=== PATIENT | male | born 1970 | race African-American/Black ===

== ENCOUNTER 2017-09-10 00:23 | Emergency (ER) | payer SELFPAY ==
[2017-09-10] MEDS ORDERED: ASPIRIN 81 MG TABLET, CHEWABLE PO ONE (00:48)
--- NOTE | 2017-09-10 00:48 | ER Document Report ---
ED Cardiac - General Chief Complaint: Chest Pain Stated Complaint: CHEST PAIN Time Seen by Provider: 09/10/17 00:40 Notes: Patient is a 47-year-old male comes emergency department for chief complaint of pain in the left side of his chest, said the pain starts towards the middle of his pectoralis (he points) and wraps around to underneath his armpit. Pain is worse when he lifts his left arm. He states that he intermittently gets this pain while at work, states it always resolves. He states it was sharper today and he came to be evaluated for. He denies current pain unless he moves or with position changes. He denies shortness of breath, nausea or vomiting, or any other complaints. He smokes, he denies any daily medications or known medical problems. He drinks alcohol, he denies recreational drugs. His father had a heart attack. 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 TRAVEL OUTSIDE OF THE [place] IN LAST 30 DAYS: No - Related Data Allergies/Adverse Reactions: No Known Allergies Allergy (Unverified 09/23/12 19:16) Past Medical History - General Information source: Patient - Social History Smoking Status: Current Every Day Smoker Smoking Education Provided: Yes - <3 min Frequency of alcohol use: Occasional Drug Abuse: None Lives with: Family Family History: Reviewed & Not Pertinent Pulmonary Medical History: Reports: Hx Asthma - A CHILD Past Surgical History: Reports: Hx Orthopedic Surgery - Immunizations Hx Diphtheria, Pertussis, Tetanus Vaccination: Yes Review of Systems - Review of Systems Constitutional: No symptoms reported EENT: No symptoms reported Cardiovascular: See HPI Respiratory: No symptoms reported Gastrointestinal: No symptoms reported Genitourinary: No symptoms reported Male Genitourinary: No symptoms reported Musculoskeletal: See HPI Skin: No symptoms reported Hematologic/Lymphatic: No symptoms reported Neurological/Psychological: No symptoms reported Physical Exam - Vital signs Vitals: Temp Pulse Resp BP Pulse Ox 98.6 F 64 16 140/95 H 100 09/10/17 00:37 09/10/17 00:37 09/10/17 00:37 09/10/17 00:37 09/10/17 00:37 - General General appearance: Appears well In distress: None - Patient smiling and well-appearing - HEENT Head: Normocephalic, Atraumatic Eyes: Normal Conjunctiva: Normal Extraocular movements intact: Yes Eyelashes: Normal Pupils: PERRL Nasal: Normal Mouth/Lips: Normal Mucous membranes: Normal Pharynx: Normal Neck: Normal - Respiratory Respiratory status: No respiratory distress. No: Respiratory distress, Labored Chest status: Tender - Patient is tender over the lateral left pectoralis muscle extending up towards the axillary area, no erythema, induration, fluctuance, or crepitus over the area. Unremarkable chest wall examination otherwise Breath sounds: Normal. No: Decreased air movement, Nonproductive cough, Wheezing - Cardiovascular Rhythm: Regular. No: Tachycardia Heart sounds: Normal auscultation, S1 appreciated, S2 appreciated - Abdominal Inspection: Normal Tenderness: Nontender. No: Tender, Guarding - Back Back: Normal, Nontender - Extremities General upper extremity: Normal inspection, Nontender, Normal ROM, Normal strength General lower extremity: Normal inspection, Nontender, Normal ROM, Normal strength. 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 Slightly peaked T waves throughout, flattened T-wave in aVL and V2, nonspecific. Chest x-ray with no abnormalities noted. CBC with no leukocytosis, shows elevated lymphocytes. Chemistry unremarkable. CK slightly elevated, troponin negative. Patient's heart score is 2. Specific chest wall tenderness was reproduced tenderness with movement that patient has had intermittently and frequently gets while at work and after work and resolves on its own. No tachycardia, shortness of breath, or current symptoms suggesting pulmonary embolism. Patient asymptomatic throughout his entire stay in the emergency department unless he lifts his left arm or I press on the area at the pectoralis. Patient does not even have established primary care. Discussed workup, smoking cessation, primary care referral, patient states he will call today to set up his appointment because he understands it takes time to get in. Discussed workup, recommendations, return precautions in detail. Patient states understanding and agreement. - Vital Signs Vital signs: Temp Pulse Resp BP Pulse Ox 98.2 F 59 L 16 143/98 H 99 09/10/17 04:30 09/10/17 04:30 09/10/17 04:30 09/10/17 04:30 09/10/17 04:30 - Laboratory Result Diagrams: 09/10/17 01:05 09/10/17 01:05 Laboratory results interpreted by me: 09/10/17 09/10/17 01:05 01:05 RBC 4.34 L Seg Neuts % (Manual) 27 L Lymphocytes % (Manual) 57 H Abs Lymphs (Manual) 4.9 H Creatine Kinase 219 H Discharge - Discharge Clinical Impression: Chest wall pain Chest pain Qualifiers: Chest pain type: unspecified Qualified Code(s): R07.9 - Chest pain, unspecified Condition: Stable Disposition: HOME, SELF-CARE Additional Instructions: Your workup shows no concerning abnormalities at this time. For the chest wall pain take the naproxen prescribed, take the muscle relaxer if needed (I recommend taking at night, can be sedating, do not mix with other sedating medication, do not drive while taking). Call the primary care referral to set up a follow-up for additional evaluation and management. Quit smoking. Return for any concerning symptoms including severe pain, difficulty breathing, vomiting, fever, or any other concerning symptoms Prescriptions: Cyclobenzaprine HCl [Flexeril 5 mg Tablet] 1 - 2 tab PO TID PRN #15 tablet PRN Reason: Naproxen [Naprosyn 375 Mg Tablet] 375 mg PO BID PRN #20 tablet PRN Reason: Forms: Return to Work, Elevated Blood Pressure Referrals: [facility] [Provider Group] - Follow up as needed
[2017-09-10 01:21] LABS: HEMATOCRIT 40.4 % (37.9-51.0); HEMOGLOBIN 13.8 g/dL (13.5-17.0); MEAN CORPUSCULAR HEMOGLOBIN 31.7 pg (27.0-33.4); MEAN CORPUSCULAR VOLUME 93 fl (80-97); PLATELET COUNT 250 10^3/uL (150-450); RED BLOOD COUNT 4.34 10^6/uL (4.35-5.55); RED CELL DISTRIBUTION WIDTH 13.6 % (11.5-14.0); WHITE BLOOD COUNT 8.1 10^3/uL (4.0-10.5)
--- NOTE | 2017-09-10 01:21 | RADIOLOGY REPORT (SQ) ---
EXAM DESCRIPTION: CHEST SINGLE VIEW CLINICAL HISTORY: chest pain COMPARISON: None. FINDINGS: Single frontal view of the chest. The cardiomediastinal silhouette has normal size and contour. No consolidation, pneumothorax, or pleural effusion. No displaced rib fractures identified. Upper abdominal soft tissues are unremarkable. IMPRESSION: 1. No acute pulmonary process identified.
[2017-09-10 01:32] LABS: ALANINE AMINOTRANSFERASE 29 U/L (21-72); ALBUMIN 4.2 g/dL (3.5-5.0); ALKALINE PHOSPHATASE 60 U/L (38-126); ANION GAP 14 (5-19); ASPARTATE AMINO TRANSFERASE 23 U/L (17-59); BILIRUBIN,DIRECT 0.3 mg/dL (0.0-0.4); BILIRUBIN,TOTAL 0.3 mg/dL (0.2-1.3); BLOOD UREA NITROGEN 19 mg/dL (7-20); CALCIUM 9.4 mg/dL (8.4-10.2); CARBON DIOXIDE 25 mmol/L (22-30); CHLORIDE 104 mmol/L (98-107); CREATINE KINASE 219 U/L (55-170); GLUCOSE 102 mg/dL (75-110); POTASSIUM 3.8 mmol/L (3.6-5.0); SODIUM 143.3 mmol/L (137-145); TOTAL PROTEIN 7.1 g/dL (6.3-8.2)
[2017-09-10 01:38] LABS: ABSOLUTE LYMPHOCYTES# (MANUAL) 4.9 10^3/uL (0.5-4.7); ABSOLUTE MONOCYTES # (MANUAL) 0.6 10^3/uL (0.1-1.4); ABSOLUTE NEUTROPHILS# (MANUAL) 2.2 10^3/uL (1.7-8.2); BASOPHILS % (MANUAL) 0 % (0-2); EOSINOPHILS % (MANUAL) 5 % (0-6); LYMPHOCYTES % (MANUAL) 57 % (13-45); MONOCYTES % (MANUAL) 8 % (3-13); SEGMENTED NEUTROPHILS % (MAN) 27 % (42-78); TOTAL CELLS COUNTED 100
[2017-09-10 01:39] LABS: PLATELET COMMENT ADEQUATE; RBC MORPHOLOGY COMMENT NORMO-CYTIC/CHROMIC
[2017-09-10 01:48] LABS: CREATINE KINASE MB 0.68 ng/mL (<4.55); TROPONIN I < 0.012 ng/mL
[2017-09-10 05:01] VITALS: BP 143/98
--- NOTE | 2017-09-10 07:48 | EKG REPORT ---
SEVERITY:- BORDERLINE ECG - SINUS RHYTHM BORDERLINE T ABNORMALITIES, ANT-LAT LEADS : Confirmed by: Braulio Uriostegui MD 10-Sep-2017 07:47:45
== END 2017-09-10 04:40 | disposition home or self-care (01) ==
LOC: ER 00:23
DX: R07.89 Other chest pain (principal); D72.820 Lymphocytosis (symptomatic); F17.200 Nicotine dependence, unspecified, uncomplicated; Z71.6 Tobacco abuse counseling; Z82.49 Family history of ischemic heart disease and other diseases of the circulatory system
CPT/HCPCS: 36415; 71045; 80053; 82550; 82553; 84484; 85025; 93005; 93010; 99285

== ENCOUNTER 2018-01-01 00:52 | Emergency (ER) | payer SELFPAY ==
[2018-01-01 01:01] VITALS: BP 146/91
[2018-01-01] MEDS ORDERED: IPRATROPIUM/ALBUTEROL 0.5-2.5 MG/3 ML AMPUL NEB ONE (02:33)
--- NOTE | 2018-01-01 02:39 | ER Document Report ---
ED General - General Chief Complaint: Breathing Difficulty Stated Complaint: CANT BREATHE Time Seen by Provider: 01/01/18 02:32 Mode of Arrival: Ambulatory Information source: Patient Notes: 47-year-old male history of asthma presents with complaints of episode of shortness of breath as well as difficulty swallowing. Patient notes when he awoke from sleep felt short of breath felt like his mouth was extremely dry, patient states he drinks some water and the symptoms resolved. Patient now is completely asymptomatic but wanted to be evaluated nonetheless. 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 IN LAST 30 DAYS: No - HPI Onset: Just prior to arrival Onset/Duration: Sudden Quality of pain: No pain Severity: Mild Pain Level: Denies Associated symptoms: Hoarseness, Shortness of breath Exacerbated by: Denies Relieved by: Other - water Similar symptoms previously: Yes Recently seen / treated by doctor: No - Related Data Allergies/Adverse Reactions: No Known Allergies Allergy (Verified 01/01/18 03:27) Past Medical History - Social History Smoking Status: Never Smoker Cigarette use (# per day): No Chew tobacco use (# tins/day): No Smoking Education Provided: No Family History: Reviewed & Not Pertinent Pulmonary Medical History: Reports: Hx Asthma - A CHILD Renal/ Medical History: Denies: Hx Peritoneal Dialysis Past Surgical History: Reports: Hx Orthopedic Surgery - Immunizations Hx Diphtheria, Pertussis, Tetanus Vaccination: Yes Review of Systems - Review of Systems Notes: REVIEW OF SYSTEMS: CONSTITUTIONAL : Denies fever, chills, or sweats. Denies recent illness. EENT: Admits to difficulty swallowing CARDIOVASCULAR: Denies chest pain. Denies palpitations or racing or irregular heart beat. Denies ankle edema. RESPIRATORY: Admits shortness of breath GASTROINTESTINAL: Denies abdominal pain or distention. Denies nausea, vomiting , or diarrhea. Denies blood in vomitus, stools, or per rectum. Denies black, tarry stools. Denies constipation. GENITOURINARY: Denies difficulty urinating, painful urination, burning, frequency, blood in urine, or discharge. MUSCULOSKELETAL: Denies back or neck pain or stiffness. Denies joint pain or swelling. SKIN: Denies rash, lesions or sores. HEMATOLOGIC : Denies easy bruising or bleeding. LYMPHATIC: Denies swollen, enlarged glands. NEUROLOGICAL: Denies confusion or altered mental status. Denies passing out or loss of consciousness. Denies dizziness or lightheadedness. Denies headache. Denies weakness or paralysis or loss of use of either side. Denies problems with gait or speech. Denies sensory loss, numbness, or tingling. Denies seizures. PSYCHIATRIC: Denies anxiety or stress. Denies depression, suicidal ideation, or homicidal ideation. ALL OTHER SYSTEMS REVIEWED AND NEGATIVE. Dictation was performed using [employer] recognition software PHYSICAL EXAMINATION: GENERAL: Well-appearing, well-nourished and in no acute distress. HEAD: Atraumatic, normocephalic. EYES: Pupils equal round and reactive to light, extraocular movements intact, sclera anicteric, conjunctiva are normal. ENT: Nares patent, oropharynx clear without exudates. Moist mucous membranes. NECK: Normal range of motion, supple without lymphadenopathy LUNGS: Breath sounds clear to auscultation bilaterally and equal. No wheezes rales or rhonchi. HEART: Regular rate and rhythm without murmurs ABDOMEN: Soft, nontender, nondistended abdomen. No guarding, no rebound. No masses appreciated. Musculoskeletal: Normal range of motion, no pitting or edema. No cyanosis. NEUROLOGICAL: Cranial nerves grossly intact. Normal speech, normal gait. Normal sensory, motor exams PSYCH: Normal mood, normal affect. SKIN: Warm, Dry, normal turgor, no rashes or lesions noted. Physical Exam - Vital signs Vitals: Temp Pulse Resp BP Pulse Ox 98.1 F 67 20 146/91 H 99 01/01/18 01:00 01/01/18 01:00 01/01/18 01:00 01/01/18 01:00 01/01/18 01:00 Course - Re-evaluation Re-evalutation: 01/01/18 02:38 Patient currently is asymptomatic has no complaints at all looks well is in no distress. I will evaluate the patient again after lab work but he is currently in no distress 01/01/18 03:31 Lab work noted no significant abnormality, patient otherwise looks well is no distress will be discharged home with close follow-up After performing a Medical Screening Examination, I estimate there is LOW risk for ACUTE CORONARY SYNDROME, PULMONARY EMBOLI, RESPIRATORY FAILURE, SEPSIS OR MENINGITIS, thus I consider the discharge disposition reasonable. I have reevaluated this patient multiple times and no significant life threatening changes are noted. The patient and I have discussed the diagnosis and risks, and we agree with discharging home with close follow-up. We also discussed returning to the Emergency Department immediately if new or worsening symptoms occur. We have discussed the symptoms which are most concerning (e.g., changing or worsening pain, trouble swallowing or breathing, neck stiffness, fever) that necessitate immediate return. - Vital Signs Vital signs: Temp Pulse Resp BP Pulse Ox 98.1 F 67 20 146/91 H 99 01/01/18 01:00 01/01/18 01:00 01/01/18 01:00 01/01/18 01:00 01/01/18 01:00 - Laboratory Result Diagrams: 01/01/18 02:45 01/01/18 02:45 Laboratory results interpreted by me: 01/01/18 02:45 Creatine Kinase 188 H Discharge - Discharge Clinical Impression: Shortness of breath Condition: Stable Disposition: HOME, SELF-CARE Instructions: Dyspnea, Nonspecific ([facility]) Additional Instructions: Follow up with your physician tomorrow for further care or return to the ED IMMEDIATELY if symptoms worsen or new concerns occur. If you cannot afford to follow up with your primary care physician a list of low cost clinics have been provided at the end of your discharge papers as well.
[2018-01-01 03:02] LABS: ABSOLUTE BASOPHILS # (AUTO) 0.1 10^3/uL (0.0-0.2); ABSOLUTE EOSINOPHILS # (AUTO) 0.5 10^3/uL (0.0-0.6); ABSOLUTE LYMPHOCYTES (AUTO) 2.9 10^3/uL (0.5-4.7); ABSOLUTE MONOCYTES (AUTO) 0.5 10^3/uL (0.1-1.4); ABSOLUTE NEUT (AUTO) 4.3 10^3/uL (1.7-8.2); BASOPHILS % (AUTO) 0.9 % (0-2); EOSINOPHILS % (AUTO) 5.7 % (0-6); HEMATOCRIT 41.8 % (37.9-51.0); HEMOGLOBIN 14.2 g/dL (13.5-17.0); MEAN CORPUSCULAR HEMOGLOBIN 32.1 pg (27.0-33.4); MEAN CORPUSCULAR HGB CONC 33.9 g/dL (32.0-36.0); MEAN CORPUSCULAR VOLUME 95 fl (80-97); MONOCYTES % (AUTO) 6.5 % (3-13); PLATELET COUNT 234 10^3/uL (150-450); RED BLOOD COUNT 4.42 10^6/uL (4.35-5.55); RED CELL DISTRIBUTION WIDTH 13.4 % (11.5-14.0); SEGMENTED NEUTROPHILS % (AUTO) 51.9 % (42-78); TOTAL CELLS COUNTED % (AUTO) 100 %; WHITE BLOOD COUNT 8.2 10^3/uL (4.0-10.5)
[2018-01-01 03:10] LABS: ALANINE AMINOTRANSFERASE 45 U/L (21-72); ALBUMIN 4.7 g/dL (3.5-5.0); ALKALINE PHOSPHATASE 71 U/L (38-126); ANION GAP 11 (5-19); ASPARTATE AMINO TRANSFERASE 38 U/L (17-59); BILIRUBIN,DIRECT 0.3 mg/dL (0.0-0.4); BILIRUBIN,TOTAL 0.5 mg/dL (0.2-1.3); BLOOD UREA NITROGEN 17 mg/dL (7-20); CALCIUM 9.8 mg/dL (8.4-10.2); CARBON DIOXIDE 25 mmol/L (22-30); CHLORIDE 105 mmol/L (98-107); CREATINE KINASE 188 U/L (55-170); GLUCOSE 108 mg/dL (75-110); POTASSIUM 4.3 mmol/L (3.6-5.0); SODIUM 140.7 mmol/L (137-145); TOTAL PROTEIN 8.1 g/dL (6.3-8.2)
[2018-01-01 03:20] LABS: APPEARANCE,URINE CLEAR; BILIRUBIN,URINE NEGATIVE (NEGATIVE); COLOR,URINE COLORLESS; GLUCOSE, URINE NEGATIVE (NEGATIVE); KETONES,URINE NEGATIVE (NEGATIVE); LEUKOCYTE ESTERASE,URINE NEGATIVE (NEGATIVE); NITRITE,URINE NEGATIVE (NEGATIVE); PROTEIN,URINE NEGATIVE (NEGATIVE); URINE SPECIFIC GRAVITY 1.002; UROBILINOGEN,URINE NEGATIVE mg/dL (<2.0)
[2018-01-01 03:23] LABS: CREATINE KINASE MB 0.48 ng/mL (<4.55); NT PRO BNP 31 pg/mL (<125)
[2018-01-01 03:25] LABS: TROPONIN I < 0.012 ng/mL
--- NOTE | 2018-01-01 03:37 | RADIOLOGY REPORT (SQ) ---
EXAM DESCRIPTION: XR CHEST 1 VIEW COMPLETED DATE/TME: 01/01/2018 02:32 CLINICAL HISTORY: 47 years Male, sob COMPARISON: None. NUMBER OF VIEWS/TECHNIQUE: 1/AP FINDINGS: Increased lung volume, clear parenchyma, normal cardiac silhouette, and intact bony thorax. IMPRESSION: No acute cardiopulmonary findings.
--- NOTE | 2018-01-01 08:39 | EKG REPORT ---
SEVERITY:- NORMAL ECG - SINUS RHYTHM : Confirmed by: Alexandra Fagan 01-Jan-2018 08:38:38
== END 2018-01-01 03:55 | disposition home or self-care (01) ==
LOC: ER 00:52
DX: R06.02 Shortness of breath (principal)
CPT/HCPCS: 36415; 71045; 80053; 81001; 82550; 82553; 83880; 84484; 85025; 93005; 93010; 99285

== ENCOUNTER 2020-02-08 22:42 | Emergency (ER) | payer SELFPAY ==
[2020-02-08] MEDS ORDERED: NORMAL SALINE 1000 ML 1,000 ML IV ONE (23:52)
[2020-02-09 00:19] LABS: ABSOLUTE EOSINOPHILS # (AUTO) 0.4 10^3/uL (0.0-0.6); ABSOLUTE LYMPHOCYTES (AUTO) 2.9 10^3/uL (0.5-4.7); ABSOLUTE MONOCYTES (AUTO) 0.6 10^3/uL (0.1-1.4); ABSOLUTE NEUT (AUTO) 4.4 10^3/uL (1.7-8.2); BASOPHILS % (AUTO) 0.5 % (0-2); EOSINOPHILS % (AUTO) 4.2 % (0-6); HEMATOCRIT 41.5 % (37.9-51.0); HEMOGLOBIN 14.4 g/dL (13.5-17.0); MEAN CORPUSCULAR HEMOGLOBIN 33.6 pg (27.0-33.4); MEAN CORPUSCULAR HGB CONC 34.8 g/dL (32.0-36.0); MEAN CORPUSCULAR VOLUME 97 fl (80-97); MONOCYTES % (AUTO) 7.1 % (3-13); PLATELET COUNT 224 10^3/uL (150-450); RED CELL DISTRIBUTION WIDTH 13.2 % (11.5-14.0); SEGMENTED NEUTROPHILS % (AUTO) 53.2 % (42-78); TOTAL CELLS COUNTED % (AUTO) 100 %; WHITE BLOOD COUNT 8.3 10^3/uL (4.0-10.5)
--- NOTE | 2020-02-09 00:36 | EKG REPORT ---
SEVERITY:- ABNORMAL ECG - SINUS RHYTHM CONSIDER LEFT VENTRICULAR HYPERTROPHY : Confirmed by: Alexandra Fagan 09-Feb-2020 00:35:52
[2020-02-09 00:38] LABS: ALBUMIN 4.7 g/dL (3.5-5.0); ALKALINE PHOSPHATASE 105 U/L (38-126); ANION GAP 7 (5-19); ASPARTATE AMINO TRANSFERASE 27 U/L (17-59); BILIRUBIN,TOTAL 0.8 mg/dL (0.2-1.3); BLOOD UREA NITROGEN 9 mg/dL (7-20); CALCIUM 9.8 mg/dL (8.4-10.2); CARBON DIOXIDE 26 mmol/L (22-30); CHLORIDE 99 mmol/L (98-107); GLUCOSE 109 mg/dL (75-110); PHOSPHORUS 3.8 mg/dL (2.5-4.5); POTASSIUM 3.9 mmol/L (3.6-5.0)
--- NOTE | 2020-02-09 01:01 | ER Document Report ---
ED General - General Chief Complaint: Blurred Vision Stated Complaint: BLURRY VISION, LIGHTHEADED TRAVEL OUTSIDE OF THE [place] IN LAST 30 DAYS: No - HPI Notes: 49-year-old male history of smoking presents with brief episode of light headedness approximately 1 hour prior to arrival. Patient says that he does not usually drink and that day prior to arrival he had alcohol binge while at family gathering. Patient says that all day on day of presentation he felt dehydrated and was trying to drink water and then was sitting watching TV and felt lightheadedness for a moment associated with blurry vision which resolved after few seconds. Patient currently has no dizziness or blurry vision. Other than the family event patient describes, he has been home during the pandemic and isolating and has not had any COVID exposures. Patient denies having any other history of drug use, chest pain, shortness of breath, hypertension, hyp erlipidemia history, diabetes, cardiac history, lower extremity edema, abdominal pain, melena or bright red blood per rectum, vomiting, sick contacts, fever, recent illness, cough - Related Data Allergies/Adverse Reactions: No Known Allergies Allergy (Verified 01/01/18 03:27) Past Medical History - General Information source: Patient - Social History Smoking Status: Current Every Day Smoker Frequency of alcohol use: Occasional Drug Abuse: None Family History: Reviewed & Not Pertinent Patient has homicidal ideation: No Pulmonary Medical History: Reports: Hx Asthma - A CHILD Renal/ Medical History: Denies: Hx Peritoneal Dialysis Past Surgical History: Reports: Hx Orthopedic Surgery - Immunizations Hx Diphtheria, Pertussis, Tetanus Vaccination: Yes Review of Systems - Review of Systems Notes: REVIEW OF SYSTEMS: CONSTITUTIONAL : Denies fever, chills, or sweats. EENT: Denies recent cold/sinus symptoms, denies throat pain CARDIOVASCULAR: Denies chest pain, CARL RESPIRATORY: Denies cough, denies shortness of breath. GASTROINTESTINAL: Denies abdominal pain, nausea/vomiting. GENITOURINARY: Denies difficulty urinating, painful urination. MUSCULOSKELETAL: Denies neck pain, back pain. SKIN: Denies rash or skin lesions. HEMATOLOGIC : Denies easy bruising or bleeding. LYMPHATIC: Denies swollen, enlarged glands. NEUROLOGICAL: Denies headache, denies change in gait. PSYCHIATRIC: Denies anxiety or stress or depression. Physical Exam - Vital signs Vitals: Temp Pulse Resp BP Pulse Ox 98.2 F 66 18 158/101 H 100 02/08/20 22:54 02/08/20 22:54 02/08/20 22:54 02/08/20 22:54 02/08/20 22:54 - Notes Notes: PHYSICAL EXAMINATION: GENERAL: Well-appearing, well-nourished, happy appearing talkative pleasant middle-aged man sitting up in stretcher with no visible signs of discomfort and in no acute distress. HEAD: Atraumatic, normocephalic. EYES: Pupils equal round and appropriate constriction, sclera anicteric, conjunctiva are normal. ENT: nares patent, dry mucous membranes. NECK: Normal range of motion, supple without lymphadenopathy LUNGS: Breath sounds clear to auscultation bilaterally and equal. No wheezes rales or rhonchi. HEART: Regular rate and rhythm without murmurs ABDOMEN: Soft, nontender, no guarding, no masses, no CVAT EXTREMITIES: Normal range of motion, no pitting or edema. No cyanosis. NEUROLOGICAL: Awake, alert, conversing appropriately, moves all extremities spontaneously. PSYCH: Normal mood, normal affect. SKIN: Warm, Dry, normal turgor, no rashes or lesions noted. Course - Re-evaluation Re-evalutation: 02/09/20 01:05 Patient with very dry mucosa on my physical exam otherwise very well-appearing. Very benign presentation and patient currently asymptomatic in ED. Normal vital signs. Will rule out ACS given patient's age and smoking history and possible underlying hypertension has not been diagnosed yet, but low suspicion and will rule out with ADAPT score if trop--which will be 2 hours after patient symptoms--is negative. Will check electrolytes and rule out occult symptomatic anemia. EKG, troponin, electrolytes, IV fluids, likely discharge with PCP follow-up and return precautions. 02/09/20 01:31 Patient feels greatly improved after fluids. Mild hyponatremia on patient's labs which I have instructed him to follow-up with her primary doctor. Patient low risk for adapt score and able to be ruled out with his negative troponin and EKG. Will give patient printout of all results so he can follow-up with primary doctor. Gave patient extensive return to ED precautions which he demonstrated understanding of. Patient ready for discharge. - Vital Signs Vital signs: Temp Pulse Resp BP Pulse Ox 98.2 F 66 16 174/97 H 100 02/08/20 22:54 02/08/20 22:54 02/09/20 00:01 02/09/20 00:01 02/09/20 00:01 - Laboratory Result Diagrams: 02/08/20 23:50 02/08/20 23:50 Laboratory results interpreted by me: 02/08/20 02/08/20 23:50 23:50 RBC 4.30 L MCH 33.6 H Sodium 132.3 L - EKG Interpretation by Me Additional EKG results interpreted by me: 02/09/20 01:09 Heart rate 62, normal sinus rhythm, no significant ST elevations or depressions, [facility] Discharge - Discharge Clinical Impression: Hyponatremia, Dehydration Disposition: HOME, SELF-CARE Additional Instructions: High Blood Pressure When your blood pressure was taken today it was elevated. Today's reading was 174/97. Pre-hypertension/Hypertension: The patient has been informed that they may have pre-hypertension or Hypertension based on a blood pressure reading in the emergency department. I recommend that the patient call the primary care provider listed on their discharge instructions or a physician of their choice this week to arrange follow up for further evaluation of possible pre-hyperte nsion or Hypertension. Sometimes, stress or illness causes a temporary elevation of your blood pre ssure. We suggest that you get your blood pressure measured three more times during the next few days to see if this is more than a temporary abnormality. If your blood pressure is greater than 150/90 on each occasion, you must have treatment. Some simple things you can do to help are: If you have blood pressure medicine but aren't using it regularly, start taking it again. Get some aerobic exercise for at least 20 minutes on a daily basis. (See your doctor before beginning a new exercise program.) Eat a low-fat diet. Lose excess weight. Avoid salty foods and avoid adding salt to any of the foods you eat. Avoid diet pills, decongestants, "energizing" herbs, and other medicines that elevate blood pressure. If left untreated, hypertension greatly enhances your risk for developing he art disease and strokes. Please don't ignore this problem. Hyponatremia You have an abnormally low level of serum sodium, called hyponatremia. Low serum sodium may cause weakness, fatigue, confusion, or even seizures. Usually, low sodium is due to taking diuretics (water pills), combined with drinking too much water. It can also be due to excessive vomiting or diarrhea. If no obv ious cause is evident, further evaluation will be necessary. If the hyponatremia results from taking diuretics, it's treated by restricting the amount of water you can drink. If it's due to vomiting and diarrhea, it's treated by drinking liberal amounts of rehydration solution (for example Lytren or Pedialyte). A follow-up blood test is often done to see that the sodium is returning to normal. Call the physician if you have severe weakness, muscle twitching or cramping, palpitations (pounding or irregular heartbeat), confusion, headache, seizures, or any other new or alarming symptoms. Follow-up with your primary doctor regarding your lightheadedness, low sodium, and high blood pressure with a 1 week. If you should have any chest pain, trouble breathing, dizziness, fainting, blood in stool, black stool, or any other worsening or alarming symptoms return to the emergency department immediately.
[2020-02-09 02:41] VITALS: BP 142/93
== END 2020-02-09 01:50 | disposition home or self-care (01) ==
LOC: ER 22:42
DX: E87.1 Hypo-osmolality and hyponatremia (principal); E86.0 Dehydration; H53.8 Other visual disturbances; R42 Dizziness and giddiness; F17.200 Nicotine dependence, unspecified, uncomplicated; J45.909 Unspecified asthma, uncomplicated
CPT/HCPCS: 93005; 99284; 96360; 96361; 36415; 83735; 84100; 85025; 80053; 84484; 93010; J7030